=== PATIENT | female | born 1995 | race African-American/Black ===

== ENCOUNTER 2019-05-24 16:22 | Emergency (ER) | payer SELFPAY ==
[2019-05-24 16:40] LABS: ABSOLUTE EOSINOPHILS # (AUTO) 0.1 10^3/uL (0.0-0.6); ABSOLUTE LYMPHOCYTES (AUTO) 3.7 10^3/uL (0.5-4.7); ABSOLUTE MONOCYTES (AUTO) 0.8 10^3/uL (0.1-1.4); ABSOLUTE NEUT (AUTO) 5.4 10^3/uL (1.7-8.2); BASOPHILS % (AUTO) 0.5 % (0-2); EOSINOPHILS % (AUTO) 0.8 % (0-6); HEMATOCRIT 38.3 % (36.0-47.0); HEMOGLOBIN 13.7 g/dL (12.0-15.5); LYMPHOCYTES % (AUTO) 36.7 % (13-45); MEAN CORPUSCULAR HEMOGLOBIN 28.7 pg (27.0-33.4); MEAN CORPUSCULAR HGB CONC 35.7 g/dL (32.0-36.0); MEAN CORPUSCULAR VOLUME 80 fl (80-97); MONOCYTES % (AUTO) 7.8 % (3-13); PLATELET COUNT 319 10^3/uL (150-450); RED BLOOD COUNT 4.78 10^6/uL (3.72-5.28); RED CELL DISTRIBUTION WIDTH 13.7 % (11.5-14.0); SEGMENTED NEUTROPHILS % (AUTO) 54.2 % (42-78); TOTAL CELLS COUNTED % (AUTO) 100 %
[2019-05-24 17:05] LABS: ACETAMINOPHEN 91 ug/mL (10-30); ALBUMIN 4.4 g/dL (3.5-5.0); ALKALINE PHOSPHATASE 111 U/L (38-126); ANION GAP 16 (5-19); ASPARTATE AMINO TRANSFERASE 21 U/L (14-36); BILIRUBIN,DIRECT 0.2 mg/dL (0.0-0.4); BILIRUBIN,TOTAL 0.9 mg/dL (0.2-1.3); BLOOD UREA NITROGEN 10 mg/dL (7-20); CALCIUM 9.5 mg/dL (8.4-10.2); CARBON DIOXIDE 24 mmol/L (22-30); CHLORIDE 102 mmol/L (98-107); GLUCOSE 112 mg/dL (75-110); POTASSIUM 3.4 mmol/L (3.6-5.0); SALICYLATE 1.1 mg/dL (2.0-20.0); TOTAL PROTEIN 8.1 g/dL (6.3-8.2)
[2019-05-24 17:09] LABS: ALCOHOL < 10 mg/dL (NONE DETECTED)
[2019-05-24] MEDS ORDERED: ONDANSETRON 4 MG TAB.RAPDIS PO ONE (18:17)
--- NOTE | 2019-05-24 18:18 | ER Document Report ---
ED Psych Disorder / Suicide - General Chief Complaint: Psych Problem Stated Complaint: POSSIBLE OVERDOSE Time Seen by Provider: 05/24/19 17:03 Notes: Patient is a 23-year-old female who presents to the emergency department for suicidal ideation. She was brought in by ambulance after taking an entire bottle of Midol about hour prior to arriving here to the emergency department. EMS had called poison control and the recommendations are to have the patient watched for 4 hours. Patient had intentionally vomited prior to EMS arriving and was vomiting when EMS arrived. Patient states that she wanted to hurt herself. She thought it would make her . She denies any past medical history. She does not take any medications. TRAVEL OUTSIDE OF THE [place] IN LAST 30 DAYS: No - Related Data Allergies/Adverse Reactions: No Known Allergies Allergy (Unverified 02/16/16 04:47) Past Medical History - Social History Smoking Status: Unknown if Ever Smoked Family History: None Patient has suicidal ideation: Yes Patient has homicidal ideation: No - Past Medical History Cardiac Medical History: Denies: Hx Congestive Heart Failure, Hx DVT, Hx Heart Attack, Hx Hypercholesterolemia, Hx Hypertension, Hx Pulmonary Embolism Pulmonary Medical History: Denies: Hx Asthma, Hx COPD Neurological Medical History: Denies: Hx Seizures Endocrine Medical History: Denies: Hx Diabetes Mellitus Type 1, Hx Diabetes Mellitus Type 2, Hx Hyperthyroidism, Hx Hypothyroidism GI Medical History: Denies: Hx Cirrhosis, Hx Gastroesophageal Reflux Disease, Hx Hepatitis Musculoskeletal Medical History: Denies Hx Arthritis Psychiatric Medical History: Denies: Hx Depression Infectious Medical History: Denies: Hx Hepatitis Review of Systems - Review of Systems Notes: REVIEW OF SYSTEMS: CONSTITUTIONAL : Denies recent illness. Denies recent unintentional weight loss. Denies fever, chills, or sweats. EENT: Denies eye, ear, throat, or mouth pain, discharge, or symptoms. Denies nasal or sinus congestion. CARDIOVASCULAR: Denies chest pain. RESPIRATORY: Denies shortness of breath, cough, congestion, difficulty breathing, or wheezing. GASTROINTESTINAL: See HPI. GENITOURINARY: Denies difficulty urinating, burning, blood in urine, urgency or frequency. MUSCULOSKELETAL: Denies neck and back pain. Denies joint pain or swelling. SKIN: Denies rash, itchiness, or lesions HEMATOLOGIC : Denies easy bruising or bleeding. LYMPHATIC: Denies swollen, painful, enlarged glands. NEUROLOGICAL: Denies no numbness or tingling denies weakness. Denies headache. Denies altered mental status. Denies alteration in speech. PSYCHIATRIC: See HPI. All other systems reviewed and negative. Physical Exam - Vital signs Vitals: Temp Pulse Resp BP Pulse Ox 98.1 F 76 22 H 149/88 H 100 05/24/19 17:07 05/24/19 17:07 05/24/19 17:07 05/24/19 17:07 05/24/19 17:07 - Notes Notes: PHYSICAL EXAMINATION: GENERAL: Appears well, healthy, well-nourished, no acute distress. HEAD: Normocephalic, atraumatic. EYES: PERRL, conjunctiva normal, all extraocular movements intact, sclera nonicteric ENT: Moist mucous membranes. NECK: Supple, no noticeable swelling, redness, rash. Normal range of motion. LUNGS: Equal breath sounds bilaterally and clear to auscultation. No wheezes rales or rhonchi. CARDIOVASCULAR: S1-S2, regular rate, regular rhythm. Radial pulses 2+, normal. ABDOMEN: Normoactive bowel sounds. Soft, nontender, no guarding, no rebound tenderness, and no masses palpated. EXTREMITIES: Normal strength and range of motion, no pitting or edema. No cyanosis. NEUROLOGICAL: Moves all extremities upon command. Strength 5/5 in all extremities. PSYCH: Normal mood, normal affect. SKIN: Warm, dry. No rash, lesions, ulcerations noted. Normal skin turgor. Course - Re-evaluation Re-evalutation: 05/24/19 18:48 Hematology is unremarkable. Chemistries show potassium of 3.4, which will be replaced. Other chemistries are unremarkable. Salicylates are negative and alcohol is negative. Patient's acetaminophen level is 91. Will have a repeat acetaminophen level. Discussed this case with Dr. De Anda, my attending physician. If the repeat acetaminophen level is greater than 150, the patient will receive Mucomyst. 05/24/19 20:31 Patient's repeat acetaminophen level is 51. Patient is stable for mental health evaluation by Dr. Rashid and the mental health staff. 05/24/19 20:33 IVC paperwork filled out. - Vital Signs Vital signs: Temp Pulse Resp BP Pulse Ox 98.1 F 76 22 H 149/88 H 100 05/24/19 17:07 05/24/19 17:07 05/24/19 17:07 05/24/19 17:07 05/24/19 17:07 - Laboratory Result Diagrams: 05/24/19 13:52 05/24/19 13:52 Laboratory results interpreted by me: 05/24/19 05/24/19 13:52 18:54 Potassium 3.4 L Glucose 112 H Salicylates 1.1 L Acetaminophen 91 H 51 H - EKG Interpretation by Me Additional EKG results interpreted by me: 05/24/19 20:32 Sinus rhythm. Rate 77. TN 136; QRS 80; QT 316; QTc 471. No ST elevation or depression noted. No acute change from previous EKG done on 02/16/2016. Discharge - Discharge Clinical Impression: Suicidal ideation Overdose Qualifiers: Encounter type: initial encounter Injury intent: intentional self-harm Qualified Code(s): T50.902A - Poisoning by unspecified drugs, medicaments and biological substances, intentional self-harm, initial encounter Condition: Stable Disposition: PSYCH HOSP/UNIT
[2019-05-24] MEDS ORDERED: POTASSIUM CHLORIDE 10 MEQ TABLET.ER PO ONE (18:19)
--- NOTE | 2019-05-24 20:06 | EKG REPORT ---
SEVERITY:- NORMAL ECG - SINUS RHYTHM : Confirmed by: Hernando Thompson MD 24-May-2019 20:06:00
[2019-05-24 20:30] LABS: ALKALINE PHOSPHATASE 111 U/L (38-126); ASPARTATE AMINO TRANSFERASE 20 U/L (14-36); BILIRUBIN,TOTAL 0.6 mg/dL (0.2-1.3); TOTAL PROTEIN 7.2 g/dL (6.3-8.2)
[2019-05-24 23:22] LABS: APPEARANCE,URINE SLIGHTLY-CLOUDY; BILIRUBIN,URINE NEGATIVE (NEGATIVE); COLOR,URINE YELLOW; GLUCOSE, URINE NEGATIVE (NEGATIVE); KETONES,URINE NEGATIVE (NEGATIVE); LEUKOCYTE ESTERASE,URINE NEGATIVE (NEGATIVE); NITRITE,URINE NEGATIVE (NEGATIVE); PROTEIN,URINE 30 mg/dL (NEGATIVE); URINE SPECIFIC GRAVITY 1.032; UROBILINOGEN,URINE NEGATIVE mg/dL (<2.0)
[2019-05-24 23:38] LABS: URINE AMPHETAMINES SCREEN NEGATIVE; URINE BARBITURATES SCREEN NEGATIVE; URINE BENZODIAZEPINES SCREEN NEGATIVE; URINE COCAINE SCREEN NEGATIVE; URINE MARIJUANA (THC) SCREEN NEGATIVE; URINE METHADONE SCREEN NEGATIVE; URINE PHENCYCLIDINE SCREEN NEGATIVE
--- NOTE | 2019-05-25 | ER Document Report ---
Doctor's Note Notes: 05/24/19 23:59 Patient is resting quietly no distress at this time
--- NOTE | 2019-05-25 09:45 | ER Document Report ---
Doctor's Note Notes: 05/25/19 09:40 PHYSICAL EXAMINATION: GENERAL: Appears well, healthy, well-nourished, no acute distress. LUNGS: Equal breath sounds bilaterally and clear to auscultation. No wheezes rales or rhonchi. CARDIOVASCULAR: S1-S2, regular rate, regular rhythm. Radial pulses 2+, normal. ABDOMEN: Normoactive bowel sounds. Soft, nontender, no guarding, no rebound tenderness, and no masses palpated. PSYCH: Normal mood, normal affect. Patient denies any suicidal or homicidal ideation. She appears in a better mood today and she is smiling. Mental health recommendation is for the patient to receive Zyprexa 2.5 mg twice daily. She will receive her first dose here in the emergency department. Plan is to see how she feels after she receives her Zyprexa and to hopefully discharge. 05/25/19 14:54 Patient's father is at bedside and he will be the patient's primary caregiver and he has secured the house. At this time, the patient is stable for discharge. Follow-up precautions were given. Verbal discharge instructions were given to the patient. They verbalized understanding. They are stable for discharge.
[2019-05-25] MEDS ORDERED: OLANZAPINE 2.5 MG TABLET PO SCH (10:00)
--- NOTE | 2019-05-25 14:15 | PSYCHOLOGICAL NOTE ---
Psych Note - Psych Note Date seen by psych provider: 05/25/19 Time seen by psych provider: 07:15 Psych Note: Permissions: Father- Freddie Villanueva [phone] Patient is a 23-year-old female who presents to ED via EMS for OD via a bottle of Midol. Overnight physician completed 24 hour petition for evaluation. Patient states she took the Midol with the intent to commit suicide. Patient described the event as an "in the moment thing" as she was sitting alone in her apartment. Patient states there were no triggers. Patient states is experiencing increased work as described as "changes..just different things." Clinician discussed patient's prior suicide attempt with similar etiology in 2016. Patient continued with vague answers. Clinician used Rogerian techniques to build rapport with patient. Patient was informed clinician's role is not to trial court judge, but to gather information to know how to best help and support. Patient began to cry and stated that "my mom thinks I'm Bipolar." Patient disclosed times in which she "is sad for a few weeks, and then I'm in a good mood." Patient described her good mood as a period of impulsively and high energy. Patient states she is able to maintain her job and perform her ADLs. Patient states she first noticed symptoms at the end of middle school. Patient states she was diagnosed with insomnia and ADHD, and was prescribed Adderall and Ritalin. Patient states she was not consistent with those medications and has been off the medication "for years." Patient graduated from high school on time. Clinician notes patient engaged, smiling, and laughing the more she disclosed. Updated- Patient reports "feeling much better." Patient denies current suicidal ideation. Clinician spoke with patient's father who agreed to be part of patient's plan of care which include being responsible for medication management and adminis tration, monitoring for signs of emotional distress, facilitating follow-up with mental health appointments, removing medications including [id number] medications from the home, and removing objects from the home that could be used for suicidal purposes. Father reported no concerns with discharge, especially with him being involved in her care. Update 14:08-spoke with patient and patient's father together. Patient's father verified patient's apartment has been safe'd as described in prior discussion. Patient verified patient's father had removed medications. Clinician reviewed plan of care. Patient and patient's father were agreeable expressed no concern for patient's continued safety and wellbeing at discharge. Patient stated she did not have a concern if she had to wait. Patient's father will be staying in patient's apartment with patient for the next few days. Clinician discussed the possibility that patient may not be able to see an outpatient provider for a couple of weeks. Patient expressed no concern. Clinical provided patient with information regarding mobile crisis. Patient is alert and oriented to person, place, time and circumstance. Mood is euryhmic with congruent affect. Patient denies suicidal and homicidal ideations. Delusions are absent and behavior is congruent with an intact reality based presentation (i.e., organized and linear through processes). There is no observed behavior that suggests patient is responding to internal stimuli. Patient is able to engage in organized, rational thought processes. Patient is able to express needs and wants in a logical manner. Patient denies current auditory and visual hallucinations. Eye contact is appropriate. Conversational speech is within normal rate, tone, and prosody. Intellectual ability appears to be within average range. Attention and concentration are good. Insight, judgment and impulse control are currently poor. Medication recommendations per [facility] contracted psychiatrist Dr. Montrell MD are as follows: Add Zyprexa 2.5MG, BID Impression/Plan: Patient is recommended for rescind of IVC and is cleared from acute psychiatric services. Medication recommendations have been provided. Patient denies current suicidal ideation. Patient denies homicidal ideations. There is no observed behavior that suggests patient is responding to internal stimuli. Patient engaged in organized, rational, linear thought processes and was able to express needs and wants in a logical manner. Patient initially presented with SI/OD via a bottle of Midol. Patient had similar prior suicide attempt in 2016. Patient was initially guarded and vague with disclosures. Clinician used Rogerian techniques to build rapport and trust. Patient subsequently disclosed a concern that her mental health symptoms could be the result of undiagnosed/untreated Bipolar disorder. Patient reports a cycle of sadness for a few weeks, and then periods of high energy and impulsively. Patient would benefit from patient mental health services to learn how to accurately interpret and respond to her environment, thoughts, and emotions as she experiences episodes of nettie and depression. Patient was provided a mental health resource list with the contact information for mobile crisis highlighted. Plan is for patient to follow-up with mental health provider. Dr. Rashid was consulted on the care and management of this patient; attending physician is in agreement with recommendations and disposition.
[2019-05-25 16:04] VITALS: BP 112/68
== END 2019-05-25 15:45 | disposition home or self-care (01) ==
LOC: ER 16:22
DX: R45.851 Suicidal ideations (principal); T50.902A Poisoning by unspecified drugs, medicaments and biological substances, intentional self-harm, initial encounter; X58.XXXA Exposure to other specified factors, initial encounter
CPT/HCPCS: 93005; 99285; 36415; 80307 ×4; 85025; 87070; 80053; 81001; 93010; S0119; J3490